=== PATIENT | male | born 1965 | race Caucasian/White ===

== ENCOUNTER 2017-02-19 18:01 | Emergency (ER) | payer OTHER ==
[2017-02-19 18:22] VITALS: BP 118/79; PULSE 73; RESP 18; TEMP 97.7
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
--- NOTE | 2017-02-19 19:16 | CT ---
EXAMINATION TYPE: CT brain wo con DATE OF EXAM: 02/19/2017 COMPARISON: NONE HISTORY: Trauma 2 days ago. Right sided injury CT DLP: 1159 mGycm Automated exposure control for dose reduction was used. FINDINGS: Ventricles of normal size. There is no mass effect nor midline shift. There is no sign of intracrania l hemorrhage. The calvarium is intact. IMPRESSION: NORMAL UNENHANCED HEAD CT SCAN.
== END 2017-02-19 19:26 | disposition home or self-care (01) ==
LOC: EC 18:01
DX: S06.0X0A Concussion without loss of consciousness, initial encounter (principal); R40.2412 Glasgow coma scale score 13-15, at arrival to emergency department; W22.09XA Striking against other stationary object, initial encounter
CPT/HCPCS: 70450; 99283

== ENCOUNTER → 2018-01-13 | Outpatient (CLI) | payer OTHER ==
[2018-01-13 09:16] LABS: Basophils % (A) 1 %; Eosinophils # (A) 0.1 k/uL (0-0.7); Eosinophils % (A) 3 %; HCT 42.2 % (39.0-53.0); HGB 14.5 gm/dL (13.0-17.5); Lymphocytes # (A) 1.6 k/uL (1.0-4.8); Lymphocytes % (A) 34 %; MCH 32.1 pg (25.0-35.0); MCHC 34.3 g/dL (31.0-37.0); MCV 93.6 fL (80.0-100.0); Mean Platelet Volume 7.4; Monocytes # (A) 0.3 k/uL (0-1.0); Monocytes % (A) 5 %; Neutrophils # (A) 2.7 k/uL (1.3-7.7); Neutrophils % (A) 56 %; Platelet Count 231 k/uL (150-450); RBC 4.51 m/uL (4.30-5.90); RDW 13.8 % (11.5-15.5); WBC 4.8 k/uL (3.8-10.6)
[2018-01-13 09:32] LABS: ALT 47 U/L (21-72); AST 36 U/L (17-59); Albumin 4.4 g/dL (3.5-5.0); Alkaline Phosphatase 61 U/L (38-126); Anion Gap 10 mmol/L; Blood Urea Nitrogen 19 mg/dL (9-20); Calcium 9.4 mg/dL (8.4-10.2); Carbon Dioxide 28 mmol/L (22-30); Chloride 105 mmol/L (98-107); Cholesterol 216 mg/dL (<200); GGT 63 U/L (15-73); Glucose 108 mg/dL (74-99); HDL Cholesterol 38 mg/dL (40-60); LDL Cholesterol,Calculated 151 mg/dL (0-99); Potassium 4.3 mmol/L (3.5-5.1); Sodium 143 mmol/L (137-145); Total Bilirubin 0.4 mg/dL (0.2-1.3); Total Protein 7.5 g/dL (6.3-8.2); Triglycerides 137 mg/dL (<150)
[2018-01-13 10:03] LABS: Prostate Specific Antigen 0.77 ng/mL (0.00-4.00)
[2018-01-13 16:54] LABS: Vitamin D 25 Hydroxy 18.2 ng/mL (30.0-100.0)
[2018-01-13 16:57] LABS: DNA Double-Stranded NEGATIVE (NEGATIVE)
[2018-01-13 18:20] LABS: Hepatitis C IgG Antibody Non-Reactive (Non-Reactive)
[2018-01-13 21:43] LABS: Hemoglobin A1C 5.9 % (4.0-6.0)
== END | disposition home or self-care (01) ==
LOC: LABWHC1 08:30
PROVIDERS: ATTEND Internal Medicine
DX: N40.0 Benign prostatic hyperplasia without lower urinary tract symptoms (principal); E87.8 Other disorders of electrolyte and fluid balance, not elsewhere classified; E78.5 Hyperlipidemia, unspecified; E55.9 Vitamin D deficiency, unspecified; M19.90 Unspecified osteoarthritis, unspecified site; M35.9 Systemic involvement of connective tissue, unspecified
CPT/HCPCS: 36415; 80053; 80061; 82306; 82977; 83036; 84153; 84443; 85025; 86038; 86225; 86803

== ENCOUNTER 2024-04-27 11:06 | Emergency (ER) | payer SELFPAY ==
--- NOTE | 2024-04-27 11:27 | ED ---
Lower Extremity Injury HPI - General Stated Complaint: Fall-R ankle injury Time Seen by Provider: 04/27/24 11:21 Source: patient, RN notes reviewed - History of Present Illness Initial Comments: This is a 58-year-old male presents emergency department chief complaint of right ankle pain. States that yesterday evening around 1700 he was going up the stairs when he twisted his right ankle. He denies other injuries at time this fall. States that he has been having pain with weightbearing since this time. Denies paresthesias. Denies previous history of surgery of the right foot or ankle. No other acute complaints this time. - Related Data Allergies Allergy/AdvReac Type Severity Reaction Status Date / Time No Known Allergies Allergy Verified 04/27/24 11:27 Review of Systems ROS Statement: Those systems with pertinent positive or pertinent negative responses have been documented in the HPI. ROS Other: All systems not noted in ROS Statement are negative. Past Medical History Past Medical History: No Reported History History of Any Multi-Drug Resistant Organisms: None Reported Past Surgical History: Appendectomy Past Psychological History: No Psychological Hx Reported Past Alcohol Use History: Occasional Past Drug Use History: None Reported General Exam - General Exam Comments Initial Comments: Visual Physical Exam Vital signs reviewed General: Well-appearing, nontoxic, no acute distress. Head: Normocephalic, atraumatic Eyes: PERRLA, EOMI ENT: Airway patent Chest: Nonlabored breathing Skin: No visual rash, normal skin tone Neuro: Alert and oriented 3 Musculoskeletal: No gross abnormalities General appearance: alert, in no apparent distress Eye exam: Present: normal appearance, PERRL, EOMI. Absent: scleral icterus, conjunctival injection, periorbital swelling ENT exam: Present: normal exam, mucous membranes moist Neck exam: Present: normal inspection. Absent: tenderness, meningismus, lymphadenopathy Respiratory exam: Present: normal lung sounds bilaterally. Absent: respiratory distress, wheezes, rales, rhonchi, stridor Cardiovascular Exam: Present: regular rate, normal rhythm, normal heart sounds. Absent: systolic murmur, diastolic murmur, rubs, gallop, clicks GI/Abdominal exam: Present: soft, normal bowel sounds. Absent: distended, tenderness, guarding, rebound, rigid Right Ankle exam: Present: tenderness, swelling Foot/Toe exam: Present: tenderness, swelling, ecchymosis (lateral foot) Neurovascular tendon exam: Absent: no vascular compromise Gait: not tested/not observed Back exam: Present: normal inspection Skin exam: Present: warm, dry, intact, normal color. Absent: rash Course Vital Signs 04/27/24 04/27/24 11:25 13:36 Temperature 98 F 98.1 F Pulse Rate 67 76 Respiratory 16 18 Rate Blood Pressure 111/73 126/76 O2 Sat by Pulse 98 98 Oximetry Medical Decision Making - Medical Decision Making Was pt. sent in by a medical professional or institution (, PA, FINANCIAL INSTITUTION MANAGER, urgent care, hospital, or half-way...) When possible be specific @ -No Did you speak to anyone other than the patient for history (EMS, parent, family, police, friend...)? What history was obtained from this source @ -No Did you review nursing and triage notes (agree or disagree)? Why? @ -I reviewed and agree with nursing and triage notes Were old charts reviewed (outside hosp., previous admission, EMS record, old EKG, old radiological studies, urgent care reports/EKG's, half-way records)? Report findings @ -No old charts were reviewed Differential Diagnosis (chest pain, altered mental status, abdominal pain women, abdominal pain men, vaginal bleeding, weakness, fever, dyspnea, syncope, headache, dizziness, GI bleed, back pain, seizure, CVA, palpatations, mental health, musculoskeletal)? @ -Differential Musculoskeletal Muscular strain, contusion, ligament sprain, fracture, arthritis, septic arthritis, bursitis, cellulitis, muscle spasm, nerve compression, DVT, arterial occlusion, herpes zoster, electrolyte abnormality, tumor.... This is not meant to be in all inclusive list EKG interpreted by me (3pts min.). @ -None X-rays interpreted by me (1pt min.). @ -X-ray of the right foot and right ankle reveals an acute fracture of the base of the fifth metatarsal with minimal displacement with no additional fractures identified with associated soft tissue swelling. CT interpreted by me (1pt min.). @ -None done U/S interpreted by me (1pt. min.). @ -None done What testing was considered but not performed or refused? (CT, X-rays, U/S, labs)? Why? @ -None What meds were considered but not given or refused? Why? @ -None Did you discuss the management of the patient with other professionals (professionals i.e. DrVipul, PA, FINANCIAL INSTITUTION MANAGER, lab, RT, psych nurse, public health social worker, events solutions consultant, teacher, special assets officer, pillowcase cutter)? Give summary @ -No Was smoking cessation discussed for >3mins.? @ -No Was critical care preformed (if so, how long)? @ -No Were there social determinants of health that impacted care today? How? (Homelessness, low income, unemployed, alcoholism, drug addiction, transportation, low edu. Level, literacy, decrease access to med. care, prison, rehab)? @ -No Was there de-escalation of care discussed even if they declined (Discuss DNR or withdrawal of care, Hospice)? DNR status @ -No What co-morbidities impacted this encounter? (DM, HTN, Smoking, COPD, CAD, Cancer, CVA, ARF, Chemo, Hep., AIDS, mental health diagnosis, sleep apnea, morbid obesity)? @ -None Was patient admitted / discharged? Hospital course, mention meds given and route, prescriptions, significant lab abnormalities, going to OR and other pertinent info. @ -Discharge. 58-year-old male with a fall and injury to the left foot/ankle. On evaluation patient noted to have lateral foot edema and pain to palpation. It is neuro vastly intact and a strong strength. X-ray remarkable for a fracture at the base of the fifth metatarsal. Patient is provided with a surgical boot/shoe and given crutches to maintain nonweightbearing status and instructed to follow-up with primary care provider and cad specialist for further evaluation. Continue to rest, ice, elevate and use Tylenol Motrin as needed. All questions have been answered at bedside and strict return parameters discussed with the patient he is verbalized understanding. Case discussed with Dr. Vitale. Undiagnosed new problem with uncertain prognosis? @ -No Drug Therapy requiring intensive monitoring for toxicity (Heparin, Nitro, Insulin, Cardizem)? @ -No Were any procedures done? @ -No Diagnosis/symptom? @ -Metatarsal fracture Acute, or Chronic, or Acute on Chronic? @ -Acute Uncomplicated (without systemic symptoms) or Complicated (systemic symptoms)? @ -Uncomplicated Side effects of treatment? @ -No Exacerbation, Progression, or Severe Exacerbation? @ -No Poses a threat to life or bodily function? How? (Chest pain, [place], [place], pneumonia, PE, COPD, DKA, ARF, appy, cholecystitis, CVA, Diverticulitis, Homicidal, Suicidal, threat to staff... and all critical care pts) @ -No Disposition Clinical Impression: Metatarsal fracture Disposition: HOME SELF-CARE Condition: Good Instructions (If sedation given, give patient instructions): Foot Fracture in Adults (ED) Additional Instructions: Please return to the Emergency Department if symptoms worsen or any other concerns. Continue nonweightbearing status wearing a surgical shoe and using crutches until follow-up with cad specialist. Continue Tylenol Motrin as needed for pain, rest, ice, and elevate as well. Is patient prescribed a controlled substance at d/c from ED?: No Referrals: None,Stated [Primary Care Provider] - 1-2 days Aric Tavera MD [STAFF PHYSICIAN] - 1-2 days Time of Disposition: 13:17
--- NOTE | 2024-04-27 12:42 | XR ---
EXAMINATION TYPE: XR foot complete RT, XR ankle complete RT DATE OF EXAM: 04/27/2024 11:57 AM CLINICAL INDICATION: Male, 58 years old with history of injury, swelling, pain; [facility] COMPARISON: None TECHNIQUE: XR foot complete RT, XR ankle complete RT examined in the AP, oblique, and lateral project ions. FINDINGS: Acute fracture of the base of the fifth metatarsal with minimal displacement. Associated soft tissue swelling around the ankle. Calcaneal plantar spurring is present. Calcaneal Achilles enthesophyte. IMPRESSION: Acute fracture of the base of the fifth metatarsal with minimal displacement. No additional fractures identified. There is associated soft tissue swelling. [facility], , 04/27/2024 12:39 PM
[2024-04-27 14:56] VITALS: BP 126/76; PULSE 76; RESP 18; TEMP 98.1
== END 2024-04-27 15:04 | disposition home or self-care (01) ==
LOC: EC 11:06
CPT/HCPCS: 99283